=== PATIENT | female | born 1980 | race Hispanic/Latino ===

== ENCOUNTER → 2024-02-11 | Outpatient (CLI) | payer BC | END | disposition home or self-care (01) | LOC: RAH 10:07 | PROVIDERS: ATTEND Nurse Practitioner Family | DX: Z12.31 Encounter for screening mammogram for malignant neoplasm of breast (principal); R92.323 Mammographic fibroglandular density, bilateral breasts | CPT/HCPCS: 77067 ==

== ENCOUNTER → 2025-04-14 | Outpatient (CLI) | payer BC | END | disposition home or self-care (01) | LOC: RAH 12:45 | PROVIDERS: ATTEND Nurse Practitioner Family | DX: Z12.31 Encounter for screening mammogram for malignant neoplasm of breast (principal) | CPT/HCPCS: 77067 ==